=== PATIENT | female | born 1990 | race Caucasian/White ===

== ENCOUNTER 2020-06-21 01:18 | Emergency (ER) | payer MEDICAID ==
[~2020-06-21] VITALS: Ht 154.9 cm; Wt 100.0 kg
[2020-06-21] MEDS ORDERED: ASPIRIN 81MG TABLET PO ONE (02:30)
[2020-06-21] MEDS ORDERED: NITROGLYCERIN 0.4MG TABLET SL SL PRN (02:30)
[2020-06-21 03:05] LABS: CHLORIDE 106 mEq/L (98-107)
[2020-06-21 03:06] LABS: BASOPHILS % 0.7 % (0.0-2.0); EOSINOPHILS % 4.2 % (0.0-5.0); HEMATOCRIT. 41.3 % (36.0-48.0); HEMOGLOBIN. 13.7 g/dL (12.0-16.0); LYMPHOCYTES % 33.1 % (20.0-50.0); MEAN CORPUSCULAR VOLUME 81.1 fL (81.0-99.0); MEAN PLATELET VOLUME 9.1 fl (7.4-10.4); MONOCYTES % 8.2 % (2.0-8.0); NEUTROPHILS % 53.8 % (40.0-76.0); PLATELET 258 x1000/uL (130-400); RED BLOOD CELL COUNT 5.08 mill/uL (4.2-5.4)
[2020-06-21 03:13] LABS: D-DIMER 0.47 mg/L FEU (<0.50); PARTIAL THROMBOPLASTIN TIME 30.9 sec (23.4-31.0); PROTHROMBIN TIME 10.4 sec (9.6-11.0)
[2020-06-21 03:18] LABS: HCG SCREEN NEGATIVE
[2020-06-21 08:04] VITALS: BP 97/65
== END 2020-06-21 08:27 | disposition short-term general hospital (02) ==
LOC: ER 01:18
DX: R07.89 Other chest pain (principal)
CPT/HCPCS: 36415; 71045; 80053; 83880; 84484; 84703; 85025; 85379; 85610; 85730; 93005; 99285; Z7610